=== PATIENT | male | born 1960 | race Caucasian/White ===

== ENCOUNTER 2023-05-09 12:54 | Emergency (ER) | payer OTHER ==
[~2023-05-09] VITALS: Ht 175.3 cm; Wt 77.1 kg
[2023-05-09 12:59] VITALS: BP_SYST 123; PULSE 103; RESP 19; TEMP 98; O2SAT 98
[2023-05-09 13:25] LABS: BASOPHILS % (AUTO) 0.6 % (0.0-2.0); EOSINOPHILS % (AUTO) 0.2 % (0.0-4.0); HEMATOCRIT 39.6 % (36-54); HEMOGLOBIN 12.9 g/dL (14.0-18.0); LYMPHOCYTES # (AUTO) 1.4 K/uL (1.0-5.5); LYMPHOCYTES % (AUTO) 39.7 % (20.5-51.5); MEAN CORPUSCULAR HEMOGLOBIN 31 pg (27-31); MEAN CORPUSCULAR HGB CONC 33 % (32-36); MEAN CORPUSCULAR VOLUME 97 fL (79.0-98.0); MONOCYTES # (AUTO) 0.3 K/uL (0.0-1.0); NEUTROPHILS # (AUTO) 1.9 K/uL (1.8-7.7); NEUTROPHILS % (AUTO) 52.5 % (40.0-70.0); PLATELET COUNT (AUTO) 138 K/uL (130-430); RED CELL DISTRIBUTION WIDTH 15.1 % (9.0-15.0); WHITE BLOOD COUNT (AUTO) 3.6 K/uL (4.8-10.8)
[2023-05-09 13:43] LABS: ANION GAP 8 (5-15); CALCIUM 8.8 mg/dL (8.4-11.0); CARBON DIOXIDE 26 mmol/L (23-29); CHLORIDE 92 mmol/L (98-107); CREATININE 1.24 mg/dL (0.55-1.30); GFR AFRICAN AMERICAN 76 mL/min (>90); GLUCOSE 95 mg/dL (74-106); POTASSIUM 4.1 mmol/L (3.5-5.1); SODIUM SERUM 126 mmol/L (136-145); UREA NITROGEN, BLOOD 13 mg/dL (8-21)
[2023-05-09 13:46] LABS: GFR NON AFRICAN-AMERICAN 63 mL/min (>90)
[2023-05-09 13:47] LABS: PROTHROMBIN TIME 10.8 SECS (9.5-12.5)
[2023-05-09 13:50] LABS: ACETAMINOPHEN 3 ug/mL (1-30); ALANINE AMINOTRANSFERASE 15 U/L (12-78); ALBUMIN 3.6 g/dL (3.4-4.8); ASPARTATE AMINOTRANSFERASE 23 U/L (10-37); SALICYLATE 13 mg/dL (3-30); TOTAL BILIRUBIN 0.4 mg/dL (0.0-1.0); TOTAL PROTEIN, SERUM 7.6 g/dL (6.4-8.3)
[2023-05-09 14:01] LABS: ALCOHOL, BLOOD < 3 mg/dL (<10)
[2023-05-09] MEDS ORDERED: DIVALPROEX SODIUM 250 MG TABLET(DEPAKOTE) PO ONE (15:45)
[2023-05-09] MEDS ORDERED: ONDA-8 TL (15:56)
[2023-05-09 16:19] VITALS: BP_SYST 139; PULSE 72; RESP 16; TEMP 97.8; O2SAT 94
== END 2023-05-09 16:15 | disposition home or self-care (01) ==
LOC: SED 12:54
DX: K52.9 Noninfective gastroenteritis and colitis, unspecified (principal); R51.9 Headache, unspecified; R11.10 Vomiting, unspecified; Z79.899 Other long term (current) drug therapy
CPT/HCPCS: 99285; 70450; 71045; 80053; 82140; 80164; 85025; 85610; 85730; 84484; 36415; 93005; 73560; 72125; 76376; G0482; G0480; G0481